=== PATIENT | female | born 1985 | race Caucasian/White ===

== ENCOUNTER 2024-06-28 18:56 | Emergency (ER) | payer BC, OTHER, SELFPAY ==
[2024-06-28 18:57] VITALS: BP 151/98; PULSE 113; RESP 22; TEMP 37.1; O2SAT 100; BMI 17.8
[2024-06-28 19:07] VITALS: BP 151/98; PULSE 113; RESP 23; TEMP 37.1; O2SAT 99
--- NOTE | 2024-06-28 19:37 | EKG12_ITS ---
Test Reason : DYSRHYTHMIA Blood Pressure : / mmHG Vent. Rate : 109 BPM Atrial Rate : 109 BPM P-R Int : 128 ms QRS Dur : 074 ms QT Int : 324 ms P-R-T Axes : 035 016 033 degrees QTc Int : 436 ms Sinus tachycardia Otherwise normal ECG Confirmed by Lucian Mayberry ([id number]), editor book BOZENA PITTMAN ([id number]) on 07/03/2024 1:53:03 PM Referred By: Jus Baker Confirmed By:Lucian Mayberry
--- NOTE | 2024-06-28 19:37 | CT_ITS ---
EXAM: CT ANGIOGRAPHY CHEST WITHOUT AND WITH INTRAVENOUS CONTRAST CLINICAL INDICATION: Breast cancer, abrupt onset of shortness of breath TECHNIQUE: Helically acquired angiography images were obtained of the chest without and with intravenous contrast. This CT exam was performed using one or more of the following dose reduction techniques: automated exposure control, adjustment of the mA and/or kV according to patient size, and/or use of iterative reconstruction technique. MIP reconstructed images were created and reviewed. CONTRAST: IV 100mL [id number] RADIATION DOSE: CTDIvol = 11.48 mGy, DLP = 470.49 mGy-cm COMPARISON: No relevant prior studies available. FINDINGS: PULMONARY ARTERIES: Unremarkable. Normal in caliber. No evidence of pulmonary embolism. AORTA: Unremarkable. Normal in caliber. No evidence of dissection. GREAT VESSELS OF AORTIC ARCH: Unremarkable. Normal in caliber. No evidence of dissection. LUNGS AND PLEURAL SPACES: Small calcified granuloma in the left lung base and a few calcified granulomas in the right lung. No suspicious pulmonary nodules. Mildly low lung volumes. No pleural effusion or thickening. No pneumothorax. HEART: Unremarkable. Heart size is normal. No pericardial effusion. No significant coronary artery calcifications. MEDIASTINUM: Unremarkable. No mediastinal or hilar adenopathy. Esophagus is unremarkable. No hiatal hernia. THYROID: Unremarkable. No thyroid lesions. BONES/JOINTS: Unremarkable. No suspicious lytic or blastic abnormality. SOFT TISSUES: There are bilateral breast implants, no evidence of residual breast parenchyma. LIVER: Low-attenuation fatty-appearing liver is partially included. Spleen is partially included and mildly enlarged, 14.3 cm AP, not fully included.. Distal pancreas, adrenals, superior pole of the left kidney are partially included. Cholecystectomy clips. CT/CTA Chest W/WO Contrast IMPRESSION: No acute intrathoracic abnormality. No PE or aortic aneurysm or dissection. Mastectomies, breast implants, and minimally prominent bilateral axillary lymph nodes, nonspecific. Low-attenuation fatty liver. Cholecystectomy. At least mildly enlarged spleen. Most of the abdomen is not included. Electronically Signed: Maxine Wayne MD at 20:51 EDT ,
[2024-06-28] MEDS: Ondansetron 4 MG/2 ML Vial IV (19:45)
[2024-06-28 19:46] LABS: Absolute Lymphocyte Count 0.45 X10^3/uL (0.83-4.51); Basophil# 0.02 X10^3/uL; Basophil% 0.3 % (0-1); Hematocrit 30.8 % (37-47); Hemoglobin 9.9 g/dL (12.0-15.0); Lymphocyte # 0.45 X10^3/ul (0.83-4.51); Lymphocyte % 7.9 % (19-41); Mean Corp Hgb Conc 32.1 g/dL (32-36); Mean Corpuscular Hgb 27.5 pg (27.0-32.0); Mean Corpuscular Volume 85.6 fL (81-99); Mean Platelet Vol. 9.6 fl (6.2-12.0); Monocyte# 0.15 X10^3/uL; Monocyte% 2.6 % (0-10); NRBC Flagged by Analyzer 0 % (0-5); Neutrophil % 87.5 % (47-70); POSITIVE DIFFERENTIAL YES; Platelet Count 261 K/mm3 (150-450); RBC Distribution Width CV 17.6 % (11.6-14.6); RBC Distribution Width SD 54.3 fl (35.1-43.9); White Blood Count 5.7 K/mm3 (4.4-11.0)
[2024-06-28 19:55] LABS: Differential Indicated SCAN CRITERIA MET
[2024-06-28 19:59] LABS: Platelet Estimate ADEQUATE (ADEQ)
[2024-06-28 20:00] LABS: Anisocytosis RARE; Red Cell Morphology NORM C+C NORMAL (NORM C&C)
[2024-06-28 20:05] LABS: Anion Gap 10 (5-15); BUN 20 mg/dL (7-18); BUN/Creat Ratio 24.3 RATIO (10-20); Calcium,Total 8.5 mg/dL (8.5-10.1); Chloride 107 mmol/L (98-107); Creatinine, Serum 0.82 mg/dL (0.55-1.02); EST Glomerular Filtration Rate 82 mL/min (>60); Est Glom Filt Rate - Afr Amer 99 mL/min (>60); Estimated Creatinine Clearance 74.93 ml/min; Glucose 108 mg/dL (74-106); Potassium 3.1 mmol/L (3.5-5.1); Sodium Level 139 mmol/L (136-145)
[2024-06-28 20:07] VITALS: BP 110/75; PULSE 113; RESP 15; TEMP 37.2; O2SAT 100
--- NOTE | 2024-06-28 20:20 | EDS_ITS ---
HPI History of Present Illness Chief Complaint: Shortness of Breath Detail of Chief Complaint: Acute onset of shortness of breath with pleuritic chest pain Informant: patient and spouse/S.O. Onset/Context/Timing Onset: Hours Context: sudden and rest Timing: Continuous Quality: Positive for Dyspnea on exertion; Negative for Orthopnea, PND or Wheezing Current Severity: Mild Maximum Severity: Moderate Worsened by: Exertion Relieved by: Nothing Associated Symptoms sweats; Negative for cough, rhinorrhea, post nasal drip, ear pain, fever, sore throat, subjective or chills Chest Pain: Positive for Intermittent and Pleuritic Narrative Narrative: She was diagnosed with stage Ib breast cancer.Patient is a 39-year-old female. She underwent bilateral mastectomy. She is present on chemotherapy and 1 to 2 hours prior to onset of her symptoms that she administered udenyca. She did not complain of any bone pain which is a common adverse reaction. She denies leg pain, swelling discoloration. She denies fever, chills night sweats. She denies headache, visual, ocular auditory symptoms. She denies rhinorrhea, congestion, postnasal drainage sore throat. She does endorse mild GI symptoms. PE Risk Factors: Positive for Cancer; Negative for OCP + Smoking + > 35, Prior DVT or PE, Recent immobilization, Recent surgery (Mastectomy January of this year) or Recent travel Prior similar symptoms: No Recent Illness/Hospitalization: No PFSH PFSH Medical History Anemia Anxiety Depression Breast cancer delivery delivered Osteoarthritis Former smoker Hypertension Migraines Home Medications ?Medication ?Instructions ?Recorded ?Last Taken ?Type albuterol sulfate 90 mcg/actuation 2 puff inhalation Q6H PRN PRN 06/28/24 Unknown History aerosol inhaler (Ventolin HFA) wheezing buspirone 10 mg tablet 10 mg PO BID 06/28/24 Unknown History docusate sodium 100 mg capsule 100 mg PO BID 06/28/24 Unknown History lorazepam 0.5 mg tablet 0.5 mg PO Q8H PRN PRN nausea 06/28/24 Unknown History oxycodone-acetaminophen 10 mg-325 1 tab PO Q4H PRN PRN pain 06/28/24 Unknown History mg tablet promethazine 25 mg tablet 25 mg PO Q6H PRN PRN 06/28/24 Unknown History nausea/vomiting Allergy/AdvReac Type Severity Reaction Status Date / Time amoxicillin Allergy Intermediate Hives Verified 06/28/24 19:03 azithromycin (From Zithromax) Allergy Intermediate Hives Verified 06/28/24 19:03 guaifenesin (From Mucinex) Allergy Intermediate Hives Verified 06/28/24 19:03 prochlorperazine (From AdvReac Intermediate ANXIETY Verified 06/28/24 19:03 Compazine) Surgical History Hx of tonsillectomy History of cholecystectomy History of appendectomy H/O mastectomy (~01/25/24) Status post total replacement of left hip (~06/25/17) Social History (Updated 06/28/24 @ 20:[address] Jus Baker MD) household members: spouse and children Smoking Status: Former smoker ROS ROS ED Constitutional Constitutional ED: Reports sweats and weight loss; Denies chills or fever(s) Eyes Eyes: Denies blurry vision or change in vision ENT ENT ED: Denies ear pain, rhinorrhea or sore throat Cardiovascular Cardiovascular: Reports chest pain; Denies orthopnea, palpitations, paroxysmal nocturnal dyspnea or racing heartbeat Respiratory/Chest Respiratory/Chest: Reports dyspnea and dyspnea on exertion; Denies cough, orthopnea or paroxysmal nocturnal dyspnea Gastrointestinal Gastrointestinal: Reports nausea; Denies abdominal pain Genitourinary Genitourinary ED: Denies dysuria, hematuria or urinary frequency Musculoskeletal Musculoskeletal: Denies arthralgias, back pain or myalgias Integumentary Denies rash Neurologic Neurologic: Reports weakness; Denies headache(s) Hematologic/Lymphatic Hematologic/Lymphatic: Reports easy bleeding and easy bruising EXAM Physical Exam Const Vital Signs: 06/28/24 18:57 06/28/24 19:07 06/28/24 19:10 Temperature 98.8 F 98.8 F Temperature Source Oral Oral Pulse Rate 113 H 113 H Respiratory Rate 22 H 23 H Respiratory Effort Short of Breath Respiratory Depth Normal Respiratory Pattern Normal Blood Pressure 151/98 H 151/98 H Blood Pressure Mean 115 115 Pulse Ox 100 99 Oxygen Delivery Method Room Air Room Air Room Air 06/28/24 19:10 06/28/24 20:07 06/28/24 21:00 Temperature 98.9 F 98 F Temperature Source Oral Oral Pulse Rate 113 H 105 H Respiratory Rate 15 27 H Respiratory Effort Short of Breath Respiratory Depth Respiratory Pattern Normal Blood Pressure 110/75 126/59 H Blood Pressure Mean 86 81 Pulse Ox 100 99 Oxygen Delivery Method Room Air Room Air Positive well nourished and well developed Constitutional Narrative: Patient appears pale and ill. She is tachypneic. She is not hypoxic. General Appearance ED: well developed and pallor; Negative for NAD HEENT Reports moist mucous membranes HEENT Narrative: Remarkable for alopecia. Ears normal. Nares patent. Eyes PERRL and EOMs intact bilaterally General Eye ED: Yes pale conjunctiva; Negative for scleral icterus Neck no lymphadenopathy, supple, no meningeal signs and no JVD Resp normal respiratory effort and clear to auscultation bilaterally Cardio regular rhythm, S1 normal heart sound, S2 normal heart sound and no murmurs Rate: tachycardic GI non-tender, non-distended and no masses Auscultation: hypoactive bowel sounds Palpation: soft Back/Spine no CVA tenderness Extremity normal to inspection General Extremety ED: Negative for edema or tenderness General Extremity: Negative for edema Neuro oriented x3, CN's II-XII intact bilaterally and no sensory deficits noted Freda Coma Scale: document GCS findings Spontaneous Obeys Commands Oriented 15 Sensorium / Orientation: alert Speech: speech normal Psych mental status grossly normal Skin no wounds and skin turgor normal Skin Narrative: Patient has many skin tags. General Skin Exam: pallor; Negative for jaundice Lesions: no lesions Rashes: no rashes MDM MDM MDM Narrative Medical decision making narrative: Need to evaluate for infectious cause since she is at risk for neutropenia. Also need to evaluate for pneumothorax, pulmonary embolus atypical presentation for cardiac ischemia is unlikely. Will obtain EKG to assess for right heart strain or ischemia. CTA of the chest was ordered because of concern for PE and patient is moderate to high pretest probability. She is tachypneic, tachycardic and undergoing chemotherapy for active cancer. Lab Data Attestation: I reviewed the patient's lab results. Lab results narrative: CBC reveals mild anemia with an H&H 9.9 and 30.8. There is no old labs for comparison. Electrolyte panel reveals an elevated BUN with a BUN/creatinine ratio of 24:1. Labs: Laboratory Results - last 24 hr 06/28/24 19:24 WBC 5.7 RBC 3.60 L Hgb 9.9 L Hct 30.8 L MCV 85.6 MCH 27.5 MCHC 32.1 RDW Std Deviation 54.3 H RDW Coeff of Donna 17.6 H Plt Count 261 MPV 9.6 Immature Gran % (Auto) 1.700 H Neut % (Auto) 87.5 H Lymph % (Auto) 7.9 L [place] % (Auto) 2.6 Eos % (Auto) 0.0 Baso % (Auto) 0.3 Absolute Neuts (auto) 5.0 Absolute Lymphs (auto) 0.45 L Nucleated RBC % 0 Differential Comment SEE COMMENT Platelet Estimate ADEQUATE RBC Morphology NORM C+C Anisocytosis RARE Sodium 139 Potassium 3.1 L Chloride 107 Carbon Dioxide 22.0 Anion Gap 10 BUN 20 H Creatinine 0.82 Estim Creat Clear Calc 74.93 Est GFR (MDRD) Af Amer 99 Est GFR (MDRD) Non-Af 82 BUN/Creatinine Ratio 24.3 H Glucose 108 H Calcium 8.5 Radiography Diagnostic Testing: Clinical Impression(s) from Imaging Studies Chest CTA 06/28/24 19:37 IMPRESSION: No acute intrathoracic abnormality. No PE or aortic aneurysm or dissection. Mastectomies, breast implants, and minimally prominent bilateral axillary lymph nodes, nonspecific. Low-attenuation fatty liver. Cholecystectomy. At least mildly enlarged spleen. Most of the abdomen is not included. Electronically Signed: Maxine Wayne MD at 20:51 EDT Reading Location ID and State: [address] [place] [address] Tel , Service support , EKG Initial EKG: Attestation: I personally reviewed and interpreted this EKG as follows: Interpretation: Sinus Tachycardia (Rate to the 109 otherwise normal. [place] interval is 128 ms. QRS duration 74 ms. QT duration 3 and 24 ms. [place] is normal.) Treatment and Re-Evaluation :: Patient and were told that her CAT scan reveals no abnormality to explain her shortness of breath. This probably related to her chemotherapy. Recommended follow-up with her oncologist. Discharge Plan Triage Chief Complaint: Shortness of Breath ED Provider: Jus Baker Dx/Rx/DC Orders Clinical Impression: Acute dyspnea, Chest pain, pleuritic, Adverse effect of drug in therapeutic use, Breast cancer, S/P bilateral mastectomy Instructions: ED Dyspnea Prescriptions: No Action lorazepam 0.5 mg tablet 0.5 mg PO Q8H PRN PRN (Reason: nausea) oxycodone-acetaminophen 10-325 mg tablet 1 tab PO Q4H PRN PRN (Reason: pain) buspirone 10 mg tablet 10 mg PO BID docusate sodium 100 mg capsule 100 mg PO BID albuterol sulfate [Ventolin HFA] 90 mcg/actuation HFA aerosol inhaler 2 puff INHALATION Q6H PRN PRN (Reason: wheezing) promethazine 25 mg tablet 25 mg PO Q6H PRN PRN (Reason: nausea/vomiting) Primary Care Provider: Care Physician,No Primary Referrals: Care Physician,No Primary [Primary Care Provider] - Doctor,Your [Non-Staff] - As soon as possible Activity Restrictions/Additional Instructions: Recommend contacting your oncologist tomorrow. Print Language: Azeri Disposition Disposition: Home, Self Care
[2024-06-28 21:00] VITALS: BP 126/59; PULSE 105; RESP 27; TEMP 36.6; O2SAT 99
[2024-06-28 21:52] VITALS: BP 117/64; PULSE 79; RESP 18; TEMP 36.9; O2SAT 95
== END 2024-06-28 21:52 | disposition home or self-care (01) ==
PROVIDERS: Emergency Provider Emergency Medicine; Referring Provider Emergency Medicine; Visit Provider Emergency Medicine
DX: R06.02 Shortness of breath (principal); C50.919 Malignant neoplasm of unspecified site of unspecified female breast; R09.1 Pleurisy; T45.1X5A Adverse effect of antineoplastic and immunosuppressive drugs, initial encounter; Z90.13 Acquired absence of bilateral breasts and nipples; Z98.82 Breast implant status; Z87.891 Personal history of nicotine dependence
CPT/HCPCS: 36592; 71275; 80048; 85025; 93005; 96374; 99285; Q9967; A4216; J2405

== ENCOUNTER 2024-07-17 09:56 | Emergency (ER) | payer BC, OTHER, SELFPAY ==
[2024-07-17 09:56] VITALS: BP 149/105; BP 151/101; PULSE 121; PULSE 125; RESP 18; RESP 20; TEMP 37.1; O2SAT 100; BMI 40.7
--- NOTE | 2024-07-17 10:04 | EX.ED.DYSGE1 ---
HPI History of Present Illness Chief Complaint: Shortness of Breath Informant: patient Onset/Context/Timing Onset: Days (2) Context: Gradual Onset Timing: Continuous Quality: Swelling, sharp, aching Location: Right upper arm Worsened by: Nothing Relieved by: Nothing Narrative Narrative: Patient presents with pain and swelling to her PICC line site that has been getting worse over the past 2 days. Patient describes the pain as sharp and aching. Patient noted some swelling around the PICC site over the past couple days. Patient also noted some purulent drainage from around the site today. Patient states she called the PICC line nurse and was told to come to the emergency department. Patient has been PICC line placed for chemotherapy for breast cancer. Patient states she finished her chemotherapy on 06/27/2024. Patient states nothing makes her pain better nothing makes it worse. Patient admits to fever of 101.2 at home. Patient admits to some shortness of breath and pain over her upper chest. [facility] Medical History (Updated 07/17/24 @ 12:[address] Brandon Bee, ) Anemia Anxiety Depression Breast cancer delivery delivered Osteoarthritis Former smoker Hypertension Migraines Home Medications ?Medication ?Instructions ?Recorded ?Last Taken ?Type albuterol sulfate 90 mcg/actuation 2 puff inhalation Q6H PRN PRN 06/28/24 Unknown History aerosol inhaler (Ventolin HFA) wheezing buspirone 10 mg tablet 10 mg PO BID 06/28/24 Unknown History docusate sodium 100 mg capsule 100 mg PO BID 06/28/24 Unknown History lorazepam 0.5 mg tablet 0.5 mg PO Q8H PRN PRN nausea 06/28/24 Unknown History oxycodone-acetaminophen 10 mg-325 1 tab PO Q4H PRN PRN pain 06/28/24 Unknown History mg tablet promethazine 25 mg tablet 25 mg PO Q6H PRN PRN 06/28/24 Unknown History nausea/vomiting apixaban 5 mg tablet (Eliquis) 5 mg PO BID #74 tabs 07/17/24 Unknown Rx clindamycin HCl 300 mg capsule 300 mg PO Q6H #40 CAPSULES 07/17/24 Unknown Rx (Cleocin HCl) Allergy/AdvReac Type Severity Reaction Status Date / Time amoxicillin Allergy Intermediate Hives Verified 07/17/24 09:57 azithromycin (From Zithromax) Allergy Intermediate Hives Verified 07/17/24 09:57 guaifenesin (From Mucinex) Allergy Intermediate Hives Verified 07/17/24 09:57 prochlorperazine (From AdvReac Intermediate ANXIETY Verified 07/17/24 09:57 Compazine) Surgical History Hx of tonsillectomy History of cholecystectomy History of appendectomy H/O mastectomy (~01/25/24) Status post total replacement of left hip (~06/25/17) Social History household members: spouse and children Smoking Status: Unknown if ever smoked ROS ROS ED Constitutional Constitutional ED: Reports fever(s); Denies chills Eyes Eyes: Denies blurry vision or change in vision ENT ENT ED: Denies rhinorrhea or sore throat Cardiovascular Cardiovascular: Reports chest pain and palpitations Respiratory/Chest Respiratory/Chest: Reports dyspnea; Denies cough Gastrointestinal Gastrointestinal: Reports nausea; Denies vomiting Genitourinary Genitourinary ED: Denies dysuria or hematuria Musculoskeletal Musculoskeletal: Denies back pain or neck pain Integumentary Denies abscess or rash Neurologic Neurologic: Denies headache(s) or weakness Allergic/Immunologic Allergic/Immunologic ED: Denies mouth swelling or urticaria EXAM Physical Exam Const Vital Signs: 07/17/24 09:56 07/17/24 09:56 07/17/24 10:29 Temperature 98.7 F Temperature Source Oral Pulse Rate 121 H 125 H Respiratory Rate 20 H 18 Respiratory Depth Normal Respiratory Pattern Normal Blood Pressure 151/101 H 149/105 H Blood Pressure Mean 117 119 Pulse Ox 100 100 Oxygen Delivery Method Room Air Room Air 07/17/24 10:35 07/17/24 11:58 07/17/24 12:37 Temperature 99.2 F H Temperature Source Oral Pulse Rate 114 H 107 H 114 H Respiratory Rate 16 22 H 18 Respiratory Depth Respiratory Pattern Blood Pressure 159/108 H 139/98 H 150/101 H Blood Pressure Mean 125 111 117 Pulse Ox 98 100 100 Oxygen Delivery Method Room Air Room Air Room Air Positive well nourished and well developed General Appearance ED: well developed and NAD HEENT Reports moist mucous membranes Neck supple and no JVD Resp normal respiratory effort and clear to auscultation bilaterally Cardio regular rhythm Rate: tachycardic GI non-tender and non-distended Palpation: soft Neuro oriented x3, CN's II-XII intact bilaterally and no sensory deficits noted Sensorium / Orientation: alert Motor Exam: strength 5/5 throughout Psych mental status grossly normal Skin Skin Narrative: There is some swelling and mild erythema around the PICC line site. There is some mild drainage noted. Dressing is in place. There is tenderness to palpation over the area. MDM MDM MDM Narrative Medical decision making narrative: Differential diagnosis includes PICC line infection, sepsis, pneumonia, cardiac dysrhythmia, cardiac ischemia, and electrolyte abnormality. EKG will be obtained to assess for cardiac dysrhythmia and cardiac ischemia. Chest x-ray will be obtained to assess for pneumonia and pneumothorax. CBC will be obtained to assess for leukocytosis and anemia. Basic metabolic profile will be obtained to assess for electrolyte abnormality and renal function. Lactate will be obtained to assess for sepsis. Blood cultures will be obtained to assess for sepsis. High-sensitivity troponin will be obtained to assess for cardiac ischemia. Lab Data Attestation: I reviewed the patient's lab results. Lab results narrative: CBC was reviewed. There is a mild anemia but hemoglobin of 9.3 and hematocrit of 29.6. The remainder was within normal limits. Basic metabolic profile was reviewed and was within normal limits. Serum lactate was reviewed and was normal. High-sensitivity troponin was reviewed and was less than 3. Labs: Laboratory Results - last 24 hr 07/17/24 10:31 WBC 8.2 RBC 3.35 L Hgb 9.3 L Hct 29.6 L MCV 88.4 MCH 27.8 MCHC 31.4 L RDW Std Deviation 62.3 H RDW Coeff of Donna 19.4 H Plt Count 274 MPV 9.7 Immature Gran % (Auto) 0.700 Neut % (Auto) 80.3 H Lymph % (Auto) 7.9 L [place] % (Auto) 9.6 Eos % (Auto) 0.4 Baso % (Auto) 1.1 H Absolute Neuts (auto) 6.6 Absolute Lymphs (auto) 0.65 L Nucleated RBC % 0 Sodium 137 Potassium 3.6 Chloride 107 Carbon Dioxide 24.0 Anion Gap 7 BUN 15 Creatinine 0.81 Estim Creat Clear Calc 119.80 Est GFR (MDRD) Af Amer 101 Est GFR (MDRD) Non-Af 83 BUN/Creatinine Ratio 18.5 Glucose 138 H Lactic Acid 1.8 Calcium 9.1 Troponin I High Sens < 3 L Radiography Chest X-Ray - ED: 2 View, Read by ED Physician, Read by Radiologist and No Acute Disease Diagnostic Testing: Clinical Impression(s) from Imaging Studies Chest X-Ray 07/17/24 10:17 IMPRESSION: No acute abnormality is seen. Electronically Signed: Davey Mcbride MD at 10:56 EDT , PA and lateral chest x-ray was obtained. There are 2 views. On my independent interpretation, lung dillon are clear. There is normal cardiac silhouette. Bony thorax is normal. There is no acute process noted. Radiologist also interpreted the x-ray and agrees. EKG Initial EKG: Attestation: I personally reviewed and interpreted this EKG as follows: Interpretation: Sinus Tachycardia (111) Comments: EKG was obtained. On my independent interpretation, it showed a sinus tachycardia with a rate of 111. [place] interval, QRS interval, and QTc intervals were all normal. [place] was normal. There are no acute ST or T wave changes. Prior EKG tracings: available for review Prior: Unchanged (06/28/2024) Treatment and Re-Evaluation :: The PICC line team was consulted for possible replacement of the PICC line. PICC line nurse practitioner was over to evaluate the patient. She recommended obtaining a venous duplex to see if there is a DVT. This was ordered. Patient does have a DVT in her right axillary vein. There is also a superficial venous thrombosis in the basilic vein. Patient was advised of her findings. Patient was given a dose Eliquis and clindamycin here. Patient was given prescriptions for Eliquis and clindamycin. Patient was instructed to follow-up with her oncologist as scheduled. Patient was instructed to return if worse in any way. Patient understood and was agreeable with the plan. All questions were answered. Discharge Plan Triage Chief Complaint: Shortness of Breath ED Provider: Brandon Bee Dx/Rx/DC Orders Clinical Impression: Acute deep vein thrombosis (DVT) of axillary vein of right upper extremity, Hypertension, Breast cancer Instructions: ED Deep Vein Thrombosis (DVT) Prescriptions: New clindamycin HCl [Cleocin HCl] 300 mg capsule 300 mg PO Q6H Qty: 40 0RF Eliquis 5 mg tablet 5 mg PO BID Qty: 74 0RF Rx Instructions: 10 mg twice a day for the first week. Then 5 mg twice a day. No Action lorazepam 0.5 mg tablet 0.5 mg PO Q8H PRN PRN (Reason: nausea) oxycodone-acetaminophen 10-325 mg tablet 1 tab PO Q4H PRN PRN (Reason: pain) buspirone 10 mg tablet 10 mg PO BID docusate sodium 100 mg capsule 100 mg PO BID albuterol sulfate [Ventolin HFA] 90 mcg/actuation HFA aerosol inhaler 2 puff INHALATION Q6H PRN PRN (Reason: wheezing) promethazine 25 mg tablet 25 mg PO Q6H PRN PRN (Reason: nausea/vomiting) Primary Care Provider: Sumanth Wolf Referrals: Sumanth Wolf DO [Primary Care Provider] - 5-7 Days Care Physician,No Primary [Non-Staff] - Print Language: Latvian Disposition Disposition: Home, Self Care
--- NOTE | 2024-07-17 10:17 | RAD_ITS ---
STUDY: X-RAY CHEST REASON FOR EXAM: Female, 39 years old. Fever . History of breast carcinoma. TECHNIQUE: PA and lateral views of the chest. COMPARISON: None. FINDINGS: EKG electrodes are seen. A right-sided PICC line catheter seen with the tip in the proximal portion of the superior vena cava. Bilateral mastectomy and bilateral breast implants. The lungs are clear and expanded. There is no demonstrated pleural abnormality. Normal size heart. Normal mediastinum and [place]. Normal visualized pulmonary arteries. Normal visualized aortic arch and descending thoracic aorta. There are degenerative changes of the visualized thoracic spine. Normal visualized ribs, clavicles, and shoulders. There is no demonstrated abnormality of the visualized soft tissue structures of the upper abdomen. RAD/Chest PA and Lateral IMPRESSION: No acute abnormality is seen. Electronically Signed: Davey Mcbride MD at 10:56 EDT ,
--- NOTE | 2024-07-17 10:17 | EKG12_ITS ---
Test Reason : SOB Blood Pressure : / mmHG Vent. Rate : 111 BPM Atrial Rate : 111 BPM P-R Int : 134 ms QRS Dur : 072 ms QT Int : 326 ms P-R-T Axes : 028 -01 030 degrees QTc Int : 443 ms Sinus tachycardia Confirmed by JOSIAH MCNEILL, JOAN ([id number]), senior technical editor LINDSAY SIMPSON ([id number]) on 07/20/2024 6:21:24 AM Referred By: Confirmed By:JOAN RAHMAN MD
[2024-07-17 10:35] VITALS: BP 159/108; PULSE 114; RESP 16; TEMP 37.3; O2SAT 98
[2024-07-17 10:38] LABS: Absolute Lymphocyte Count 0.65 X10^3/uL (0.83-4.51); Absolute Neutrophil Count 6.6 X10^3/uL (2.0-7.7); Basophil# 0.09 X10^3/uL; Basophil% 1.1 % (0-1); Eosinophil# 0.03 X10^3/uL; Eosinophils% 0.4 % (0-5); Hematocrit 29.6 % (37-47); Hemoglobin 9.3 g/dL (12.0-15.0); Lymphocyte # 0.65 X10^3/ul (0.83-4.51); Lymphocyte % 7.9 % (19-41); Mean Corp Hgb Conc 31.4 g/dL (32-36); Mean Corpuscular Hgb 27.8 pg (27.0-32.0); Mean Corpuscular Volume 88.4 fL (81-99); Mean Platelet Vol. 9.7 fl (6.2-12.0); Monocyte# 0.79 X10^3/uL; Monocyte% 9.6 % (0-10); NRBC Flagged by Analyzer 0 % (0-5); Neutrophil % 80.3 % (47-70); Platelet Count 274 K/mm3 (150-450); RBC Distribution Width CV 19.4 % (11.6-14.6); RBC Distribution Width SD 62.3 fl (35.1-43.9); Red Blood Count 3.35 M/mm3 (4.2-5.4); White Blood Count 8.2 K/mm3 (4.4-11.0)
--- NOTE | 2024-07-17 10:48 | ED.RN ---
called RN in radiology to inform of patient needing PICC line assessed.
[2024-07-17 10:55] LABS: Anion Gap 7 (5-15); BUN 15 mg/dL (7-18); BUN/Creat Ratio 18.5 RATIO (10-20); Calcium,Total 9.1 mg/dL (8.5-10.1); Chloride 107 mmol/L (98-107); Creatinine, Serum 0.81 mg/dL (0.55-1.02); EST Glomerular Filtration Rate 83 mL/min (>60); Est Glom Filt Rate - Afr Amer 101 mL/min (>60); Glucose 138 mg/dL (74-106); Potassium 3.6 mmol/L (3.5-5.1); Sodium Level 137 mmol/L (136-145); Troponin-I HS < 3 pg/mL (3.0-54.0)
[2024-07-17 11:03] LABS: Lactic Acid 1.8 mmol/L (0.4-1.9)
--- NOTE | 2024-07-17 11:40 | VDUE_ITS ---
Reason For Study: Swelling RUE Right Proximal Left Proximal Right jugular vein is spontaneous, widely Left subclavian vein is spontaneous, widely patent, phasic, with no intraluminal patent, phasic, with no intraluminal echogenicity noted. echogenicity noted. Right subclavian vein is spontaneous, widely patent, phasic, with no intraluminal echogenicity noted. Right Lower Arm Right radial vein is compressible. Right ulnar vein is compressible. Right Arm Rt Axillary V is dilated and partially compressible consistent with ACUTE DVT Rt Basilic V is dilated and non compressible consistent with ACUTE SVT PICC line noted RUE. Right brachial vein is compressible. Right cephalic vein is compressible. VL/Venous Duplex US, Unilateral Interpretation Summary Acute deep vein thrombosis is noted in the right axillary vein. The remainder o f the right upper extremity deep venous system is patent and devoid of thrombosis. Acute superfic ial thrombophlebitis is noted in the right basilic vein. The right cephalic vein is patent and compr essible. A PICC catheter is visualized within the right axillary and basilic vein. The left sub clavian vein is patent. Ordering Physician: Brandon Bee Performed By: Page Hercules, TRESA, RVT ???
[2024-07-17 11:58] VITALS: BP 139/98; PULSE 107; RESP 22; O2SAT 100
[2024-07-17] MEDS: Ibuprofen 600 MG Tablet PO (12:36)
[2024-07-17 12:37] VITALS: BP 150/101; PULSE 114; RESP 18; O2SAT 100
[2024-07-17] MEDS: Clindamycin HCl 150 MG Capsule 300 MG PO (13:09)
[2024-07-17] MEDS: APIXABAN 5 MG TABLET 10 MG PO (13:09)
== END 2024-07-17 13:20 | disposition home or self-care (01) ==
PROVIDERS: Emergency Provider Emergency Medicine; PCP Family Medicine; Visit Provider Emergency Medicine
DX: I82.A11 Acute embolism and thrombosis of right axillary vein (principal); C50.919 Malignant neoplasm of unspecified site of unspecified female breast; I82.611 Acute embolism and thrombosis of superficial veins of right upper extremity; I10 Essential (primary) hypertension; Z87.891 Personal history of nicotine dependence
CPT/HCPCS: 71046; 80048; 83605; 84484; 85025; 87040; 93005; 93971; 99284; J7030; A4216

== ENCOUNTER 2025-10-04 12:40 | Emergency (ER) | payer OTHER, MEDICAID, SELFPAY ==
[2025-10-04 12:40] VITALS: BP 173/111; PULSE 96; RESP 12; TEMP 37; O2SAT 99; BMI 28.5
--- NOTE | 2025-10-04 13:18 | ED.VIS.GI ---
HPI HPI - GI History of Present Illness Chief Complaint: Abd Pain Informant: patient Abdominal Pain/Flank Pain Onset: Today Context: Gradual Onset Timing: Continuous Quality: Cramping Location: Epigastric, RUQ and LUQ Worsened by: Nothing Relieved by: Nothing Nausea/Vomiting/Emesis GI Symptom: Positive for Nausea; Negative for Vomiting Onset: Today Diarrhea/Melena/Hematochezia GI Symptom: Positive for Diarrhea; Negative for Melena or Hematochezia Onset: Today Stool Quality: Positive for Loose Associated Symptoms Associated Symptoms: Negative for Dysuria, Frequency or Hematuria LMP: Hysterectomy Narrative Narrative: Patient presents with abdominal pain that began today. Patient states it is gradually getting worse. Patient states it is constant. Patient describes it as cramping. Patient states it is mainly over the upper abdomen. Patient states nothing makes it better nothing makes it worse. Patient admits to some nausea but denies any vomiting. Patient admits to some loose stools but denies any melena or hematochezia. Patient denies any dysuria, frequency, or hematuria. PFSH PFS Medical History (Updated 10/04/25 @ 15:[address] Brandon Bee, DO) Crohn's disease Anemia Anxiety Depression Breast cancer delivery delivered Osteoarthritis Former smoker Hypertension Migraines Home Medications ?Medication ?Instructions ?Recorded ?Last Taken ?Type albuterol sulfate 90 mcg/actuation 2 puff inhalation Q6H PRN PRN 06/28/24 Unknown History aerosol inhaler (Ventolin HFA) wheezing buspirone 10 mg tablet 10 mg PO BID 06/28/24 Unknown History docusate sodium 100 mg capsule 100 mg PO BID 06/28/24 Unknown History lorazepam 0.5 mg tablet 0.5 mg PO Q8H PRN PRN nausea 06/28/24 Unknown History oxycodone-acetaminophen 10 mg-325 1 tab PO Q4H PRN PRN pain 06/28/24 Unknown History mg tablet promethazine 25 mg tablet 25 mg PO Q6H PRN PRN 06/28/24 Unknown History nausea/vomiting apixaban 5 mg tablet (Eliquis) 5 mg PO BID #74 tabs 07/17/24 Unknown Rx clindamycin HCl 300 mg capsule 300 mg PO Q6H #40 CAPSULES 07/17/24 Unknown Rx (Cleocin HCl) hydrocodone-acetaminophen 5-325mg 1 tab PO Q6H PRN PRN Pain 3 days 10/04/25 Unknown Rx 5mg-325mg #10 TABLETS ondansetron 4 mg disintegrating 4 mg PO Q8H PRN PRN Nausea #10 tabs 10/04/25 Unknown Rx tablet Allergy/AdvReac Type Severity Reaction Status Date / Time amoxicillin Allergy Intermediate Hives Verified 10/04/25 12:40 azithromycin (From Zithromax) Allergy Intermediate Hives Verified 10/04/25 12:40 guaifenesin (From Mucinex) Allergy Intermediate Hives Verified 10/04/25 12:40 prochlorperazine (From AdvReac Intermediate ANXIETY Verified 10/04/25 12:40 Compazine) Surgical History Hx of hysterectomy Hx of tonsillectomy History of cholecystectomy History of appendectomy H/O mastectomy (~01/25/24) Status post total replacement of left hip (~06/25/17) Social History household members: spouse and children Smoking Status: Unknown if ever smoked ROS ROS ED Constitutional Constitutional ED: Denies chills or fever(s) Eyes Eyes: Denies blurry vision or change in vision ENT ENT ED: Denies rhinorrhea or sore throat Cardiovascular Cardiovascular: Denies chest pain or palpitations Respiratory/Chest Respiratory/Chest: Denies cough or dyspnea Gastrointestinal Gastrointestinal: Reports abdominal pain, diarrhea and nausea; Denies vomiting Genitourinary Genitourinary ED: Denies dysuria or hematuria Musculoskeletal Musculoskeletal: Denies back pain or neck pain Integumentary Denies abscess or rash Neurologic Neurologic: Denies headache(s) or weakness Allergic/Immunologic Allergic/Immunologic ED: Denies mouth swelling or urticaria EXAM Physical Exam Const Vital Signs: 10/04/25 12:40 10/04/25 14:40 Temperature 98.6 F Temperature Source Oral Pulse Rate 96 77 Respiratory Rate 12 Blood Pressure 173/111 H 117/80 Blood Pressure Mean 131 92 Pulse Ox 99 100 Oxygen Delivery Method Room Air Positive well nourished and well developed Constitutional Narrative: BMI is 28.6. General Appearance ED: well developed and NAD HEENT Reports moist mucous membranes normocephalic and atraumatic Neck supple and no JVD Resp normal respiratory effort and clear to auscultation bilaterally Cardio regular rate and regular rhythm GI non-distended Palpation: soft and tender epigastric, LUQ and RUQ; Negative for guarding or rebound tenderness present Neuro CN's II-XII intact bilaterally, moves all extremities and no sensory deficits noted Sensorium / Orientation: alert, oriented to person, oriented to place and oriented to time Motor Exam: strength 5/5 throughout Psych mental status grossly normal and thought process normal MDM MDM MDM Narrative Medical decision making narrative: Differential diagnosis includes Crohn's exacerbation, gastroenteritis, bowel obstruction, perforation, pancreatitis, electrolyte abnormality, dehydration, and viral illness. CBC will be obtained to assess for leukocytosis and anemia. Comprehensive metabolic profile will be obtained to assess for electrolyte abnormality and renal function. Lipase will be obtained to assess for pancreatitis. Urinalysis will be obtained to assess for urinary tract infection and hematuria. Lab Data Attestation: I reviewed the patient's lab results. Lab results narrative: CBC was reviewed. There is a mild anemia with a hemoglobin of 11.5. The remainder was within normal limits. Comprehensive metabolic profile was reviewed and was within normal limits. Lipase was reviewed and was normal at 34. Urinalysis was reviewed. There is no evidence of urinary tract infection or hematuria. Labs: Laboratory Results - last 24 hr 10/04/25 10/04/25 10/04/25 13:19 13:19 13:57 WBC Cancelled 4.9 Corrected WBC Cancelled RBC Cancelled 4.28 Hgb Cancelled 11.5 L Hct Cancelled 37.0 MCV Cancelled 86.4 MCH Cancelled 26.9 L MCHC Cancelled 31.1 L RDW Std Deviation Cancelled 44.6 H RDW Coeff of Donna Cancelled 14.1 Plt Count Cancelled 258 MPV Cancelled 9.6 Immature Gran % (Auto) Cancelled 1.400 H Neut % (Auto) Cancelled 59.2 Lymph % (Auto) Cancelled 25.8 [place] % (Auto) Cancelled 10.3 H Eos % (Auto) Cancelled 2.5 Baso % (Auto) Cancelled 0.8 Absolute Neuts (auto) Cancelled 2.9 Absolute Lymphs (auto) Cancelled 1.25 Total Counted Cancelled Neutrophils % (Manual) Cancelled Band Neutrophils % Cancelled Lymphocytes % (Manual) Cancelled Monocytes % (Manual) Cancelled Eosinophils % (Manual) Cancelled Basophils % (Manual) Cancelled Metamyelocytes % Cancelled Myelocytes % Cancelled Promyelocytes % Cancelled Blast Cells % Cancelled Plasma Cell % (Manual) Cancelled Other Cells % Cancelled Nucleated RBC % Cancelled 0 Nucleated RBCs/100 WBC Cancelled Differential Comment Cancelled Diff Path Review Cancelled Hypersegmented Neuts Cancelled Atypical Lymphocytes Cancelled Reactive Lymphocytes Cancelled Smudge Cells Cancelled Toxic Granulation Cancelled Toxic Vacuolation Cancelled Dohle Bodies Cancelled Kerwin Rods Cancelled Platelet Estimate Cancelled Plt Morphology Comment Cancelled RBC Morphology Cancelled Cancelled Polychromasia Cancelled Hypochromasia Cancelled Basophilic Stippling Cancelled Anisocytosis Cancelled Microcytosis Cancelled Macrocytosis Cancelled Spherocytes Cancelled Sickle Cells Cancelled Target Cells Cancelled Tear Drop Cells Cancelled Ovalocytes Cancelled Stomatocytes Cancelled [place] Bodies Cancelled Glen Cells Cancelled Bite Cells Cancelled Crenated Cell Cancelled Acanthocytes (Spur) Cancelled Rouleaux Cancelled Schistocytes Cancelled Sodium 139 Potassium 4.0 Chloride 106 Carbon Dioxide 21.1 Anion Gap 12 BUN 13 Creatinine 0.66 L Estim Creat Clear Calc 121.05 Est GFR (MDRD) Non-Af 114 BUN/Creatinine Ratio 20.1 H Glucose 183 H Calcium 9.0 Total Bilirubin 0.17 AST 20 ALT 21 Alkaline Phosphatase 65 Total Protein 6.8 Albumin 3.8 Globulin 3.0 Albumin/Globulin Ratio 1.3 Lipase 34 Urine Color Yellow Urine Clarity Clear Urine pH 5.0 Ur Specific [place] 1.020 Urine Protein 15 H Urine Glucose (UA) Normal Urine Ketones Negative Urine Occult Blood Negative Urine Nitrite Negative Urine Bilirubin Negative Urine Urobilinogen Normal Ur Leukocyte Esterase Negative Urine RBC 0 SEEN Urine WBC 0 SEEN Ur Squamous Epith Cells 0-5 SEEN Urine Bacteria 1+ Urine Mucus 0 SEEN Radiography Diagnostic Testing: Clinical Impression(s) from Imaging Studies Abdomen/Pelvis CT 10/04/25 13:24 IMPRESSION: 1. No acute findings in the abdomen or pelvis. 2. Hepatomegaly and moderate diffuse hepatic steatosis. 3. Splenomegaly measuring 14.6 cm. 4. Cholecystectomy, hysterectomy, and appendectomy. Reading Location: [facility] CT scan of the abdomen and pelvis was obtained. There is no acute finding noted. There is hepatomegaly. There is some mild splenomegaly. This was interpreted by the radiologist. I also independently reviewed the images and did not see any free air or free fluid. EKG Initial EKG: Attestation: I personally reviewed and interpreted this EKG as follows: Interpretation: Sinus Rhythm (82) and No Acute Injury Pattern Comments: EKG was obtained. On my independent interpretation, it showed a normal sinus rhythm with a rate of 82. HI interval, QRS interval, and QTc intervals were all normal. [place] was normal. There are no acute ST or T wave changes. Prior EKG tracings: available for review Prior: Unchanged (07/17/2024) Treatment and Re-Evaluation :: Patient was given IV fluids, morphine, and Zofran. Patient was still having some pain on reevaluation. Patient was advised of her findings. Patient was given a repeat dose of morphine. Patient was given prescription for [place] and Zofran. Patient was instructed to follow-up with her primary care physician in 5 to 7 days. Patient was instructed to return if worse in any way. Patient understood and was agreeable with the plan. All questions were answered. Discharge Plan Triage Chief Complaint: Abd Pain ED Provider: Brandon Bee Dx/Rx/DC Orders Clinical Impression: Abdominal pain, Crohn's disease Instructions: ED Abdominal Pain Unkn Cause Fem, ED Crohn's Disease Prescriptions: New hydrocodone-acetaminophen 5-325 mg tablet 1 tab PO Q6H PRN PRN (Reason: Pain) 3 Days Qty: 10 0RF ondansetron 4 mg tablet,disintegrating 4 mg PO Q8H PRN PRN (Reason: Nausea) Qty: 10 0RF No Action lorazepam 0.5 mg tablet 0.5 mg PO Q8H PRN PRN (Reason: nausea) oxycodone-acetaminophen 10-325 mg tablet 1 tab PO Q4H PRN PRN (Reason: pain) buspirone 10 mg tablet 10 mg PO BID docusate sodium 100 mg capsule 100 mg PO BID albuterol sulfate [Ventolin HFA] 90 mcg/actuation HFA aerosol inhaler 2 puff INHALATION Q6H PRN PRN (Reason: wheezing) promethazine 25 mg tablet 25 mg PO Q6H PRN PRN (Reason: nausea/vomiting) clindamycin HCl [Cleocin HCl] 300 mg capsule 300 mg PO Q6H Qty: 40 0RF Eliquis 5 mg tablet 5 mg PO BID Qty: 74 0RF Rx Instructions: 10 mg twice a day for the first week. Then 5 mg twice a day. Primary Care Provider: Sumanth Wolf Referrals: Sumanth Wolf DO [Primary Care Provider, Family Practice] - 5-7 Days Print Language: Maltese Disposition Disposition: Home, Self Care
--- NOTE | 2025-10-04 13:24 | CT_ITS ---
PROCEDURE: ABDOMEN/PELVIS W IV CONT ONLY 10/04/2025 REASON FOR EXAM: ABDOMINAL PAIN TECHNIQUE: Procedure Code: [id number] Modality: CT Procedure: ABDOMEN/PELVIS W IV CONT ONLY Coronal and Sagittal reconstruction series were provided. CONTRAST: 100 cc of Isovue 370 One or more dose reduction techniques were used (e.g., Automated exposure control, adjustment of the mA and/or kV according to patient size, use of iterative reconstruction technique. COMPARISON: None available. FINDINGS: Lung bases: Bibasilar dependent atelectasis. Liver: Enlarged measuring 23.8 cm craniocaudally. Moderate diffuse hepatic steatosis. No obvious hepatic mass. Gallbladder: Surgically absent. No biliary ductal dilatation. Spleen: Enlarged measuring 14.6 cm in long axis. No splenic lesions. Pancreas: Normal size without evidence of mass surrounding inflammation or ductal dilation. Adrenals: No adrenal masses. Kidneys: Normal renal sizes. No hydronephrosis. Bladder: Unremarkable. Reproductive Organs: Prior hysterectomy. Adnexal regions are unremarkable. Bowel: No bowel obstruction. No inflammatory changes. Appendix: Surgically absent. Lymph nodes: Unremarkable. Vasculature: The abdominal aorta and IVC are normal. Peritoneum / Retroperitoneum: No free fluid or air. Bones: No acute fractures. Left hip arthroplasty. CT/Abdomen/Pelvis W IV Cont ONLY IMPRESSION: 1. No acute findings in the abdomen or pelvis. 2. Hepatomegaly and moderate diffuse hepatic steatosis. 3. Splenomegaly measuring 14.6 cm. 4. Cholecystectomy, hysterectomy, and appendectomy. Reading Location: [facility]
[2025-10-04 13:30] LABS: Mucous, Urine 0 SEEN /hpf (<or=2+); Red Blood Cells-Urine 0 SEEN /hpf (0-5)
[2025-10-04 13:34] LABS: Color, Urine Yellow (Yellow); Glucose, Dipstick Normal (Normal); Ketone-Dipstick Negative (Negative); Leukocyte Esterase-Dipstick Negative /ul (Negative); Nitrite-Dipstick Negative (Negative); Occult Blood-Urine Negative /ul (Negative); Protein-Dipstick 15 mg/dl (Negative); Specific Gravity, Urine 1.020 (1.002-1.030); Urine Bilirubin Dipstick Negative (Negative)
--- NOTE | 2025-10-04 13:34 | EKG12_ITS ---
Test Reason : Blood Pressure : */* mmHG Vent. Rate : 82 BPM Atrial Rate : 82 BPM P-R Int : 128 ms QRS Dur : 78 ms QT Int : 378 ms P-R-T Axes : 36 11 33 degrees QTcB Int : 441 ms Normal sinus rhythm Normal ECG When compared with ECG of 17-Jul-2024 10:31, Borderline criteria for Inferior infarct are no longer Present Confirmed by Nick Zavala ([id number]), industrial editor LINDSAY SIMPSON ([id number]) on 10/08/2025 11:40:30 AM Also confirmed by Nick Zavala ([id number]), industrial editor LINDSAY SIMPSON ([id number]) on 10/09/2025 10:11:10 AM Referred By: Confirmed By: Nick Zavala
[2025-10-04 13:40] LABS: Squamous Epithelial Cells - UA 0-5 SEEN /hpf (5-10)
[2025-10-04 13:49] LABS: Lipase 34 U/L (13-75)
[2025-10-04 13:50] LABS: AST(SGOT) 20 U/L (<=31); Alanine Aminotransfer ALT/SGPT 21 U/L (<=34); Albumin, Serum 3.8 g/dL (3.5-5.0); Alkaline Phosphatase 65 U/L (35-104); Anion Gap 12 (5-15); BUN 13 mg/dL (4-19); BUN/Creat Ratio 20.1 RATIO (10-20); Calcium,Total 9.0 mg/dL (7.6-11.0); Carbon Dioxide 21.1 mmol/L (21.0-32.0); Chloride 106 mmol/L (98-108); Estimated Creatinine Clearance 121.05 ml/min (50-250); Globulin 3.0 g/dL (2.2-4.2); Glucose 183 mg/dL (70-99); Potassium 4.0 mmol/L (3.3-5.1)
[2025-10-04] MEDS: 0.9% Normal Saline (1000mL) 1,000 ML 999 ML IV (13:54)
[2025-10-04 14:02] LABS: Hematocrit 37.0 % (37-47); Hemoglobin 11.5 g/dL (12.0-15.0); Immature Granulocytes Count 0.070 X10^3/uL (0.0-0.0); Mean Corp Hgb Conc 31.1 g/dL (32-36); Mean Corpuscular Volume 86.4 fL (81-99); Mean Platelet Vol. 9.6 fl (6.2-12.0); NRBC Flagged by Analyzer 0 % (0-5); Platelet Count 258 K/mm3 (150-450); RBC Distribution Width CV 14.1 % (11.6-14.6); RBC Distribution Width SD 44.6 fl (35.1-43.9); Red Blood Count 4.28 M/mm3 (4.2-5.4); White Blood Count 4.9 K/mm3 (4.4-11.0)
[2025-10-04 14:40] VITALS: BP 117/80; PULSE 77; O2SAT 100
[2025-10-04 15:34] VITALS: BP 117/80; PULSE 77; RESP 16; TEMP 36.8; O2SAT 100
== END 2025-10-04 15:36 | disposition home or self-care (01) ==
PROVIDERS: Emergency Provider Emergency Medicine; PCP Family Medicine; Visit Provider Emergency Medicine
DX: K50.90 Crohn's disease, unspecified, without complications (principal); Z87.891 Personal history of nicotine dependence
CPT/HCPCS: 74177; 80053; 81001; 83690; 85025; 93005; 96361; 96374; 96375; 96376; 99282; Q9967; A4216; J2405